=== PATIENT | male | born 1980 | race Caucasian/White ===

== ENCOUNTER 2017-04-15 20:20 | Emergency (ER) | payer SELFPAY ==
[~2017-04-15] VITALS: Ht 188 cm; Wt 136.1 kg
[2017-04-15 20:22] VITALS: BP 139/101
--- NOTE | 2017-04-15 20:27 | ER Report ---
History and Physical Time Seen By MD: 20:27 Hx. of Stated Complaint: PT HAS BEEN DRINKING TONIGHT. IS HERE TO BE CLEARED FOR RETIREMENT. HPI/ROS CHIEF COMPLAINT: Prison clearance HISTORY OF PRESENT ILLNESS: This is a 36-year-old male who is brought in by [facility] for a longterm clearance. According to [facility] the patient was walking down the sidewalk staggering they did pick him up as he was intoxicated, patient had no complaints upon arrival, has a strong smell of EtOH. No obvious trauma. No vomiting, or other complaints at this time. Patient is in handcuffs. REVIEW OF SYSTEMS: Constitutional: No fever, no chills. Eyes: No discharge. ENT: No sore throat. Cardiovascular: No chest pain, no palpitations. Respiratory: No cough, no shortness of breath. Gastrointestinal: No abdominal pain, no vomiting. Genitourinary: No hematuria. Musculoskeletal: No back pain. Skin: No rashes. Neurological: No headache. Allergies: Coded Allergies: No Known Drug Allergies (Unverified , 04/15/17) Home Meds No Active Prescriptions or Reported Meds Past Medical/Surgical History Unable to obtain past medical history. Unable To Obtain Past Medical: Unable to Obtain/Update Reviewed Nurses Notes: Yes Constitutional Vital Sign - Last 24 Hours 04/15/17 20:22 Temp 98.1 Pulse 96 Resp 14 B/P (MAP) 139/101 Pulse Ox 94 O2 Delivery Room Air Physical Exam General Appearance: The patient is awake, has no immediate need for airway protection and no signs of toxicity, strong odor of EtOH. Eyes: Pupils equal and round no pallor or injection. ENT, Mouth: Mucous membranes are moist. Poor dentition. Respiratory: There are no retractions, lungs are clear to auscultation. Cardiovascular: Regular rate and rhythm, no murmurs, clicks or rubs. Gastrointestinal: Abdomen is round, soft and non tender, no masses, bowel sounds normal. Neurological: Patient is moving all extremities. Following some commands, will open his mouth, will move his hands, is ambulating but with an unsteady gait. Skin: Warm and dry, no rashes. Musculoskeletal: Neck is supple non tender. Extremities are nontender, non-swollen and have full range of motion. Medical Decision Making ED Course/Re-evaluation ED Course Patient was admitted to room. A history of physical were obtained. The patient was here in the custody of [facility] for a longterm clearance. There are no obvious signs of injury. Patient has a strong odor of EtOH. Patient is in handcuffs. Patient ambulated from the police car to the gurney and from the gurney back to the police car. The patient was discharged in the the custody of the [facility] [employer] and was sent to longterm. Decision to Disposition Date: Apr 15, 2017 Decision to Disposition Time: 20:31 Depart Departure Latest Vital Signs Vital Signs Date Time Temp Pulse Resp B/P (MAP) Pulse Ox O2 Delivery O2 Flow Rate FiO2 04/15/17 20:22 98.1 96 14 139/101 94 Room Air Impression: Primary Impression: Medical clearance for incarceration Condition: Condition Unchanged Disposition: [facility] TO RETIREMENT/CORRECTIONAL F New Scripts No Active Prescriptions or Reported Meds Patient Instructions: Abuse of Alcohol (ED) Additional Instructions: Stop drinking alcohol. Drink plenty of water. Try to get some rest. Follow up with your primary care provider for future needs. May return to the ED for worsening symptoms. YOLANDA VANEGAS [employer]IDENTIAL [employer] Apr 15, 2017 20:27
== END 2017-04-15 20:50 ==
LOC: ER 20:42
DX: F10.129 Alcohol abuse with intoxication, unspecified (principal)
CPT/HCPCS: 99281